=== PATIENT | female | born 1995 | race African-American/Black ===

== ENCOUNTER 2017-05-05 14:28 | Emergency (ER) | payer SELFPAY ==
[~2017-05-05] VITALS: Ht 157.5 cm; Wt 63.0 kg
[~2017-05-05 14:28] MED LIST: BACTRIM DS1 TAB PO; CIPROFLOXACN500 MG PO; METRONIDAZOL500 MG PO; NO; ULTRAM50 M1 PO; ZOFRAN ODT4 MG PO
[2017-05-05 15:20] LABS: URINE BILIRUBIN - DIPSTICK NEGATIVE (NEGATIVE); URINE BLOOD DIPSTICK MODERATE (NEGATIVE); URINE COLOR YELLOW; URINE GLUCOSE - DIPSTICK NEGATIVE (NEGATIVE); URINE KETONE TRACE mg/dL (NEGATIVE); URINE LEUK ESTERASE NEGATIVE (NEGATIVE); URINE NITRITE - DIPSTICK NEGATIVE (Negative); URINE PH 8.5 (4.5-8.0); URINE PROTEIN - DIPSTICK 30 mg/dL (NEG-TRACE)
[2017-05-05 15:22] LABS: URINE CLARITY CLEAR
[2017-05-05 15:31] LABS: URINE MUCUS FEW hpf (NONE-FEW); URINE RBC 0-2 RBC/hpf (0-5); URINE SQUAMOUS EPITHELIAL CELL FEW EPI/hpf (0-FEW)
[2017-05-05] MEDS ORDERED: PYRIDIUM200 MG PO (18:00)
[2017-05-05] MEDS ORDERED: SEPTRA4001 PO (18:00)
[2017-05-05 18:07] VITALS: BP 147/81
== END 2017-05-05 18:08 | disposition home or self-care (01) | DRG 696 ==
LOC: ED 14:28
PROVIDERS: Emergency Medicine
DX: R30.0 Dysuria (principal)

== ENCOUNTER 2017-11-28 11:10 | Emergency (ER) | payer MEDICAID ==
[~2017-11-28] VITALS: Ht 157.5 cm; Wt 62.4 kg
[~2017-11-28 11:10] MED LIST changes: +PYRIDIUM200 MG PO; +SEPTRA4001 PO
[2017-11-28 12:04] LABS: IMMATURE GRANULOCYTES 0.2 % (0.0-5.0); MEAN CORPUSCULAR HGB 21.4 pG CALC (26.0-32.0); MEAN CORPUSCULAR HGB CONC 31.3 g/L CALC (32.0-36.0); NEUT# 2.02 thou/uL (2.00-7.15); RED BLOOD COUNT 5.55 mill/uL (4.20-5.60); RED CELL DISTRI WIDTH 15.4 % (11.5-15.5)
[2017-11-28 12:06] LABS: HEMOGLOBIN 11.9 g/dl (12.0-16.0); MEAN CELL VOLUME 68.5 fL CALC (80.0-100.0)
[2017-11-28 12:22] LABS: ANION GAP 14 (6-22 (CALC)); BUN 9 mg/dL (7-17); BUN/CREATININE RATIO 13 (12-20 (CALC)); CARBON DIOXIDE 26 mmol/l (22-30); CHLORIDE 106 mmol/l (95-108); CREATININE 0.7 mg/dL (0.5-1.0); GFR > 60 ML/MIN (>=60 (CALC)); GFR FOR AFR.AMER. > 60 ML/MIN (>=60 (CALC)); POTASSIUM 3.9 mmol/l (3.5-5.1); SODIUM 142 mmol/l (137-146)
[2017-11-28 12:31] LABS: URINE BILIRUBIN - DIPSTICK NEGATIVE (NEGATIVE); URINE BLOOD DIPSTICK LARGE (NEGATIVE); URINE CLARITY CLOUDY; URINE COLOR AMBER; URINE GLUCOSE - DIPSTICK NEGATIVE (NEGATIVE); URINE KETONE NEGATIVE (NEGATIVE); URINE LEUK ESTERASE TRACE (NEGATIVE); URINE NITRITE - DIPSTICK NEGATIVE (Negative); URINE PH 7.5 (4.5-8.0); URINE PROTEIN - DIPSTICK 100 mg/dL (NEG-TRACE); URINE SPECIFIC GRAVITY 1.025
[2017-11-28 12:37] LABS: URINE RBC TNTC RBC/hpf (0-5); URINE SQUAMOUS EPITHELIAL CELL FEW EPI/hpf (0-FEW)
[2017-11-28 13:14] VITALS: BP 126/84
== END 2017-11-28 13:27 | disposition home or self-care (01) ==
LOC: ED 11:10
PROVIDERS: Family Medicine
DX: N92.0 Excessive and frequent menstruation with regular cycle (principal); F17.290 Nicotine dependence, other tobacco product, uncomplicated; N93.9 Abnormal uterine and vaginal bleeding, unspecified

== ENCOUNTER 2018-01-19 12:37 | Emergency (ER) | payer MEDICAID ==
[~2018-01-19] VITALS: Ht 157.5 cm; Wt 45.0 kg
[2018-01-19 13:18] VITALS: BP 110/46
== END 2018-01-19 13:25 | disposition home or self-care (01) ==
LOC: ED 12:37
DX: N39.3 Stress incontinence (female) (male) (principal); Z76.0 Encounter for issue of repeat prescription

== ENCOUNTER 2018-06-30 19:41 | Emergency (ER) | payer MEDICAID ==
[~2018-06-30] VITALS: Ht 157.5 cm; Wt 54.5 kg
[2018-06-30 20:20] LABS: HEMATOCRIT 39.2 % (37.0-47.0); IMMATURE GRANULOCYTES 0.1 % (0.0-5.0); MEAN CELL VOLUME 68.4 fL CALC (80.0-100.0); MEAN CORPUSCULAR HGB 20.9 pG CALC (26.0-32.0); MEAN CORPUSCULAR HGB CONC 30.6 g/L CALC (32.0-36.0); NEUT# 4.68 thou/uL (2.00-7.15); RED BLOOD COUNT 5.73 mill/uL (4.20-5.60); RED CELL DISTRI WIDTH 15.7 % (11.5-15.5)
[2018-06-30 20:34] LABS: ALKALINE PHOSPHATASE 82 u/l (38-126); BILIRUBIN, TOTAL 1.2 mg/dL (0.0-1.4); BUN 9 mg/dL (7-17); BUN/CREATININE RATIO 11 (12-20 (CALC)); CARBON DIOXIDE 22 mmol/l (22-30); CHLORIDE 102 mmol/l (95-108); CREATININE 0.8 mg/dL (0.5-1.0); GFR > 60 ML/MIN (>=60 (CALC)); GFR FOR AFR.AMER. > 60 ML/MIN (>=60 (CALC)); SGOT/AST 22 u/l (14-36); SODIUM 138 mmol/l (137-146)
[2018-06-30 20:43] LABS: ALBUMIN 5.1 g/dL (3.2-5.0); ANION GAP 17 (6-22 (CALC))
[2018-06-30 20:47] LABS: MYOGLOBIN 24 ng/mL (0 - 62)
[2018-06-30 21:06] LABS: TSH, 3RD GENERATION 1.85 uIU/mL (0.47 - 4.68)
[2018-06-30 21:07] VITALS: BP 138/70
== END 2018-06-30 21:23 | disposition home or self-care (01) ==
LOC: ED 19:41
PROVIDERS: Emergency Medicine
DX: R07.89 Other chest pain (principal); E87.6 Hypokalemia; R00.0 Tachycardia, unspecified; F17.200 Nicotine dependence, unspecified, uncomplicated; Z91.19 Patient's noncompliance with other medical treatment and regimen; R11.0 Nausea; F41.1 Generalized anxiety disorder; F43.0 Acute stress reaction

== ENCOUNTER 2018-09-13 16:32 | Emergency (ER) | payer MEDICAID ==
[~2018-09-13] VITALS: Ht 157.5 cm; Wt 45.0 kg
[2018-09-13 17:29] LABS: URINE BILIRUBIN - DIPSTICK NEGATIVE (NEGATIVE); URINE BLOOD DIPSTICK NEGATIVE (NEGATIVE); URINE COLOR YELLOW; URINE GLUCOSE - DIPSTICK NEGATIVE (NEGATIVE); URINE KETONE NEGATIVE (NEGATIVE); URINE LEUK ESTERASE NEGATIVE (NEGATIVE); URINE NITRITE - DIPSTICK NEGATIVE (Negative); URINE PH 7.5 (4.5-8.0); URINE PROTEIN - DIPSTICK TRACE mg/dL (NEG-TRACE); URINE SPECIFIC GRAVITY 1.015
[2018-09-13 18:31] VITALS: BP 137/87
== END 2018-09-13 18:30 | disposition home or self-care (01) ==
LOC: ED 16:32
PROVIDERS: Emergency Medicine
DX: N94.6 Dysmenorrhea, unspecified (principal); R11.2 Nausea with vomiting, unspecified; R10.9 Unspecified abdominal pain

== ENCOUNTER 2018-11-20 13:42 | Emergency (ER) | payer MEDICAID ==
[~2018-11-20] VITALS: Ht 167.6 cm; Wt 54.4 kg
[2018-11-20 14:06] LABS: URINE BILIRUBIN - DIPSTICK NEGATIVE (NEGATIVE); URINE BLOOD DIPSTICK NEGATIVE (NEGATIVE); URINE COLOR YELLOW; URINE GLUCOSE - DIPSTICK NEGATIVE (NEGATIVE); URINE KETONE TRACE mg/dL (NEGATIVE); URINE LEUK ESTERASE NEGATIVE (NEGATIVE); URINE NITRITE - DIPSTICK NEGATIVE (Negative); URINE PROTEIN - DIPSTICK TRACE mg/dL (NEG-TRACE)
[2018-11-20 14:30] VITALS: BP 116/66
== END 2018-11-20 14:30 | disposition home or self-care (01) ==
LOC: ED 13:42
PROVIDERS: Emergency Medicine
DX: R10.2 Pelvic and perineal pain (principal)

== ENCOUNTER 2019-02-25 13:43 | Emergency (ER) | payer MEDICAID ==
[~2019-02-25] VITALS: Ht 167.6 cm; Wt 52.8 kg
[2019-02-25 16:01] VITALS: BP 137/94
== END 2019-02-25 16:14 | disposition home or self-care (01) ==
LOC: ED 13:43
DX: T14.8XXA Other injury of unspecified body region, initial encounter (principal); Y04.0XXA Assault by unarmed brawl or fight, initial encounter; S09.90XA Unspecified injury of head, initial encounter; M54.5 Low back pain

== ENCOUNTER 2020-02-25 18:51 | Emergency (ER) | payer MEDICAID ==
[~2020-02-25] VITALS: Ht 167.6 cm; Wt 67.0 kg
[2020-02-25 20:55] VITALS: BP 131/95
== END 2020-02-25 20:57 | disposition home or self-care (01) ==
LOC: ED 18:51
DX: G57.11 Meralgia paresthetica, right lower limb (principal)

== ENCOUNTER 2020-04-19 09:55 | Emergency (ER) | payer MEDICAID ==
[~2020-04-19] VITALS: Ht 167.6 cm; Wt 65.0 kg
[2020-04-19 11:45] VITALS: BP 118/60
== END 2020-04-19 11:45 | disposition home or self-care (01) ==
LOC: ED 09:55
DX: U07.1 COVID-19 (principal); R43.8 Other disturbances of smell and taste

== ENCOUNTER 2020-11-04 15:40 | Emergency (ER) | payer MEDICAID ==
[~2020-11-04] VITALS: Ht 167.6 cm; Wt 75.0 kg
[2020-11-04 18:15] VITALS: BP 141/89
[2020-11-04] MEDS ORDERED: AMOX/K CLAV875 M1 PO (18:16)
== END 2020-11-04 18:23 | disposition home or self-care (01) ==
LOC: ED 15:40
DX: S41.011A Laceration without foreign body of right shoulder, initial encounter (principal); S01.01XA Laceration without foreign body of scalp, initial encounter; S61.251A Open bite of left index finger without damage to nail, initial encounter; S61.253A Open bite of left middle finger without damage to nail, initial encounter; X99.8XXA Assault by other sharp object, initial encounter; Y04.1XXA Assault by human bite, initial encounter

== ENCOUNTER 2023-06-02 08:36 | Emergency (ER) | payer SELFPAY ==
[~2023-06-02] VITALS: Ht 167.6 cm; Wt 68.0 kg
[2023-06-02] VITALS (8 sets, daily range): BP systolic 111–133; BP diastolic 66–87
[~2023-06-02 08:36] MED LIST changes: +AMOX/K CLAV875 M1 PO
[2023-06-02 09:28] LABS: URINE BILIRUBIN - DIPSTICK Negative (NEGATIVE); URINE BLOOD DIPSTICK Negative (NEGATIVE); URINE GLUCOSE - DIPSTICK Negative (NEGATIVE); URINE KETONE Negative (NEGATIVE); URINE LEUK ESTERASE Negative (NEGATIVE); URINE NITRITE - DIPSTICK Negative (Negative); URINE PROTEIN - DIPSTICK Trace mg/dL (NEG-TRACE)
[2023-06-02 09:29] LABS: BASO% 0.9 % (0-3); EOS% 4.5 % (0-8); HEMATOCRIT 35.8 % (37.0-47.0); HEMOGLOBIN 11.1 g/dl (12.0-16.0); IMMATURE GRANULOCYTES 0.3 % (0.0-5.0); LYMPH% 29.8 % (15-41); MEAN CORPUSCULAR HGB 21.4 pG CALC (26.0-32.0); MONO% 9.1 % (2-13); NEUT# 3.61 thou/uL (2.00-7.15); NEUT% 55.4 % (42-76); RED BLOOD COUNT 5.19 mill/uL (4.20-5.60); RED CELL DISTRI WIDTH 15.3 % (11.5-15.5)
[2023-06-02 09:45] LABS: URINE COLOR Yellow
[2023-06-02 09:50] LABS: ALBUMIN 4.3 g/dL (3.2-5.0); ALKALINE PHOSPHATASE 48 u/l (38-126); BUN 9 mg/dL (7-17); BUN/CREATININE RATIO 14 (12-20 (CALC)); CARBON DIOXIDE 26 mmol/l (22-30); CHLORIDE 105 mmol/l (95-108); CREATININE 0.6 mg/dL (0.5-1.0); GFR FOR AFR.AMER. > 60 ML/MIN (>=60 (CALC)); GFR OTHER RACES > 60 ML/MIN (>=60 (CALC)); SGOT/AST 25 u/l (14-36); SODIUM 136 mmol/l (137-146); TOTAL PROTEIN 7.3 g/dL (6.3-8.2)
[2023-06-02 09:52] LABS: ANION GAP 9 (6-22 (CALC)); BILIRUBIN, TOTAL 0.7 mg/dL (0.02-1.3); POTASSIUM 3.9 mmol/l (3.5-5.1)
[2023-06-02 10:52] LABS: LIPASE 66 u/l (23-300)
[2023-06-02 11:11] LABS: BETA-HCG, QUANT(RESULT NUMBER) > 15000 mIU/mL
== END 2023-06-02 13:13 | disposition home or self-care (01) | DRG 833 ==
LOC: ED 08:36
PROVIDERS: Family Medicine
DX: O26.851 Spotting complicating pregnancy, first trimester (principal); Z3A.09 9 weeks gestation of pregnancy

== ENCOUNTER 2023-11-02 09:58 | Emergency (ER) | payer MEDICAID ==
[2023-11-02 10:10] VITALS: BP 149/88
[2023-11-02] MEDS ORDERED: SODIUM CHLORIDE 0.9% 1,000 ML IV ONE (10:10)
[2023-11-02 10:16] VITALS: BP 116/72
[2023-11-02 10:24] LABS: URINE BILIRUBIN - DIPSTICK Negative (NEGATIVE); URINE BLOOD DIPSTICK Negative (NEGATIVE); URINE COLOR Yellow; URINE GLUCOSE - DIPSTICK Negative (NEGATIVE); URINE KETONE Negative (NEGATIVE); URINE LEUK ESTERASE Negative (NEGATIVE); URINE NITRITE - DIPSTICK Negative (Negative); URINE PROTEIN - DIPSTICK 30 mg/dL (NEG-TRACE); URINE SPECIFIC GRAVITY >=1.030
[2023-11-02 10:25] LABS: URINE EPITHELIAL CELLS MODERATE EPI/hpf (0-FEW); URINE MUCUS MODERATE hpf (NONE-FEW)
[2023-11-02 10:26] LABS: BASO% 0.8 % (0-3); EOS% 5.7 % (0-8); HEMATOCRIT 34.9 % (37.0-47.0); HEMOGLOBIN 11.1 g/dl (12.0-16.0); IMMATURE GRANULOCYTES 0.5 % (0.0-5.0); MEAN CELL VOLUME 69.7 fL CALC (80.0-100.0); MEAN CORPUSCULAR HGB 22.2 pG CALC (26.0-32.0); MEAN CORPUSCULAR HGB CONC 31.8 g/dL CAL (32.0-36.0); MONO% 9.5 % (2-13); NEUT# 6.11 thou/uL (2.00-7.15); NEUT% 62.5 % (42-76); RED BLOOD COUNT 5.01 mill/uL (4.20-5.60); RED CELL DISTRI WIDTH 16.1 % (11.5-15.5)
[2023-11-02 10:36] VITALS: BP 117/69
[2023-11-02 10:53] LABS: ALBUMIN 3.8 g/dL (3.2-5.0); BILIRUBIN, TOTAL 0.7 mg/dL (0.02-1.3); CREATININE 0.6 mg/dL (0.5-1.0); POTASSIUM 3.7 mmol/l (3.5-5.1); TOTAL PROTEIN 6.8 g/dL (6.3-8.2)
[2023-11-02 11:00] VITALS: BP 115/77
[2023-11-02 11:34] VITALS: BP 115/77
== END 2023-11-02 11:13 | disposition left against medical advice (07) ==
LOC: ED 09:58
PROVIDERS: Family Medicine
DX: O36.8130 Decreased fetal movements, third trimester, not applicable or unspecified (principal); Z3A.31 31 weeks gestation of pregnancy; Z53.29 Procedure and treatment not carried out because of patient's decision for other reasons

== ENCOUNTER 2024-06-27 09:55 | Emergency (ER) | payer MEDICAID ==
[~2024-06-27] VITALS: Ht 167.6 cm; Wt 68.0 kg
[2024-06-27 10:48] LABS: EOS% 6.2 % (0-8); HEMATOCRIT 37.9 % (37.0-47.0); HEMOGLOBIN 11.4 g/dl (12.0-16.0); IMMATURE GRANULOCYTES 0.1 % (0.0-5.0); LYMPH% 31.6 % (15-41); MEAN CELL VOLUME 69.2 fL CALC (80.0-100.0); MEAN CORPUSCULAR HGB 20.8 pG CALC (26.0-32.0); MEAN CORPUSCULAR HGB CONC 30.1 g/dL CAL (32.0-36.0); MONO% 7.9 % (2-13); NEUT# 3.76 thou/uL (2.00-7.15); NEUT% 53.2 % (42-76); RED BLOOD COUNT 5.48 mill/uL (4.20-5.60); RED CELL DISTRI WIDTH 15.9 % (11.5-15.5)
[2024-06-27] MEDS ORDERED: PROVERA10 MG PO (11:20)
[2024-06-27 11:21] VITALS: BP 127/73
[2024-06-27 11:30] VITALS: BP 118/79
== END 2024-06-27 11:33 | disposition home or self-care (01) ==
LOC: ED 09:55
PROVIDERS: Family Medicine
DX: N92.0 Excessive and frequent menstruation with regular cycle (principal)